=== PATIENT | female | born 1990 | race American Indian/Alaskan Native ===

== ENCOUNTER 2018-03-22 08:04 | Emergency (ER) | payer OTHER ==
--- NOTE | 2018-03-22 09:50 | Emergency Department Report ---
Blank Doc - Documentation Documentation: Patient is a 27-year-old black female who is partially 10 weeks by dates who is here for lower abdominal cramping and vaginal bleeding. Patient has small clots coming out. Patient called her FIRE INVESTIGATION MANAGER last night was told to come to the emergency department if her bleeding did stop by the morning. Patient briefly physical exam is alert and oriented heart tones are within normal limits abdomen soft and nontender. Ultrasound be performed as well as a beta Quant. Patient does not know her blood type and Rh testing will be done as well.
[2018-03-22 10:11] LABS: Bacteria,Urine 1+ /HPF (Negative); Bilirubin,Urine NEG (Negative); Blood,Urine LG (Negative); Color,Urine Yellow (Yellow); Mucus,Urine FEW /HPF; Protein,Urine <15 mg/dL mg/dL (Negative); Urobilinogen,Urine < 2.0 mg/dL (<2.0)
--- NOTE | 2018-03-22 10:16 | Emergency Department Report ---
ED HPI - General Chief complaint: Vaginal Bleeding Stated complaint: /VAGINAL BLEEDING Time Seen by Provider: 03/22/18 09:17 Source: patient Mode of arrival: Ambulatory Limitations: No Limitations - History of Present Illness Initial comments: This is a 27-year-old female nontoxic, well nourished in appearance, no acute signs of distress presents to the ED with c/o of vaginal bleeding x1 day. Patient stated yesterday she noticed some spotting this morning x3 occasions and primarily only when she wipes after the restroom. Patient denies any abdominal or pelvic pain. Patient denies any vaginal discharge or foul odor. Patient denies any nausea, vomiting, chest pain, shortness of breathe, fever, chills, headache, stiff neck, numbness, tingling. Patient denies any urinary symptoms. Patient denies any allergies and denies significant PMH. MD Complaint: vaginal bleeding -: Last night Location: pelvis Radiation: none Severity: mild Severity scale (0 -10): 3 Quality: cramping Consistency: intermittent Improves with: none Worsens with: none Associated symptoms: vaginal bleeding. denies: nausea/vomiting, vaginal discharge, abdominal pain, dysuria, headache, vision changes, malaise, dysparuenia, rash, seizure, shortness of breath, syncope, weakness Vaginal bleeding: light :: Yes Number of weeks : 10 OB History - Current : no complications OB History - Previous Pregnancies: no complications Pre-[facility] care: followed by OB - Related Data Previous Rx's Medication Instructions Recorded Last Taken Type Nitrofurantoin [place]/M-Cryst 100 mg PO Q12HR #14 capsule 03/22/18 Unknown Rx [Macrobid CAP] 21/Iron Fu/Folic Acid 1 each PO DAILY #30 tablet 03/22/18 Unknown Rx [ Complete Caplet] Allergies Allergy/AdvReac Type Severity Reaction Status Date / Time No Known Allergies Allergy Unverified 03/22/18 09:03 ED Review of Systems ROS: Stated complaint: /VAGINAL BLEEDING Other details as noted in HPI Constitutional: denies: chills, fever Eyes: denies: eye pain, eye discharge, vision change ENT: denies: ear pain, throat pain Respiratory: denies: cough, shortness of breath, wheezing Cardiovascular: denies: chest pain, palpitations Endocrine: no symptoms reported Gastrointestinal: denies: abdominal pain, nausea, vomiting, diarrhea Genitourinary: abnormal menses. denies: urgency, dysuria, discharge Musculoskeletal: denies: back pain, joint swelling, arthralgia Skin: denies: rash, lesions Neurological: denies: headache, weakness, paresthesias Psychiatric: denies: anxiety, depression Hematological/Lymphatic: denies: easy bleeding, easy bruising ED Past Medical Hx - Social History Smoking Status: Never Smoker - Medications Home Medications: Home Medications Medication Instructions Recorded Confirmed Last Taken Type Nitrofurantoin [place]/M-Cryst 100 mg PO Q12HR #14 capsule 03/22/18 Unknown Rx [Macrobid CAP] 21/Iron Fu/Folic Acid 1 each PO DAILY #30 tablet 03/22/18 Unknown Rx [ Complete Caplet] ED Physical Exam - General Limitations: No Limitations General appearance: alert, in no apparent distress - Head Head exam: Present: atraumatic, normocephalic - Eye Eye exam: Present: normal appearance Pupils: Present: normal accommodation - ENT ENT exam: Present: normal exam, mucous membranes moist - Neck Neck exam: Present: normal inspection, full ROM. Absent: tenderness, meningismus, lymphadenopathy - Respiratory Respiratory exam: Present: normal lung sounds bilaterally. Absent: respiratory distress, wheezes, rales, rhonchi, stridor, chest wall tenderness, accessory muscle use, decreased breath sounds, prolonged expiratory - Cardiovascular Cardiovascular Exam: Present: regular rate, normal rhythm, normal heart sounds. Absent: bradycardia, tachycardia, irregular rhythm, systolic murmur, diastolic murmur, rubs, gallop - GI/Abdominal GI/Abdominal exam: Present: soft, normal bowel sounds. Absent: distended, tenderness, guarding, rebound, rigid, diminished bowel sounds - Expanded GI/Abdominal Exam Expanded GI/Abdominal exam: Absent: psoas sign, obturator sign, heel tap sign, Ward's sign, Rovsing's sign, tenderness at [place]'s Point, ascites - Rectal Rectal exam: Present: deferred - Extremities Exam Extremities exam: Present: normal inspection, full ROM, normal capillary refill. Absent: tenderness - Back Exam Back exam: Present: normal inspection, full ROM. Absent: tenderness, CVA tenderness (R), CVA tenderness (L), muscle spasm, paraspinal tenderness, vertebral tenderness, rash noted - Neurological Exam Neurological exam: Present: alert, oriented X3, CN II-XII intact, normal gait - Psychiatric Psychiatric exam: Present: normal affect, normal mood - Skin Skin exam: Present: warm, dry, intact, normal color. Absent: rash ED Course Vital Signs 03/22/18 09:00 Temperature 98.3 F Pulse Rate 70 Respiratory 17 Rate Blood Pressure 126/70 O2 Sat by Pulse 100 Oximetry - Reevaluation(s) Reevaluation #1: 03/22/18 10:18 Patient is speaking in full sentences with no signs of distress noted. - Consultations Consultation #1: Patient has been consulted with Shruti Dunlap about patient history, physical exam, and labs/US and examined and screened patient and agrees to ED plan of care and discharge plan of care. Consultation #2: 03/22/18 13:47 Anjelica Easley office was consulted and answering services stated that Dr. Ortiz is production utility worker doctor and stated that they do not answer any calls from [facility] even though it is their patient. Requested for me to call the production utility worker VALVE MECHANIC. Shyann Cyr called and pending. Consultation #3: 03/22/18 13:53 Shyann Cyr was consulted about patient historym physical exam, and US report with labs and stated "it is not ectiopic and most likely missed AB". Discharge patient with VALVE MECHANIC follow-up tomorrow. ED Medical Decision Making - Lab Data Result diagrams: 03/22/18 10:15 - Medical Decision Making This is a 27-year-old female presents with threatened miscarriage and UTI. Patient is stable and was examined by me and Dr. Omalley. Normal abdominal exam. US OB obtained and dictated by the radiologist. Ua obtained. Quantative serum test obtained. Patient notified of the US report with no questions noted by the patient. Patient was instructed f/u with VALVE MECHANIC in 2 days to follow up with a VALVE MECHANIC or to emergency room for a reevaluation of serum quantative test with possible ultrasound. RH factor positive. Labs within normal limits. Patient discharged with Macrobid and vitamins. Patient was educated on symptoms of ectopic and to return to the ED if symptoms does occur. Patient was referred to Follow-up with a VALVE MECHANIC first thing in the morning or if symptoms worsen and continue return to emergency room as soon as possible. At time of discharge, the patient does not seem toxic or ill in appearance. No acute signs of distress noted. Patient agrees to discharge treatment plan of care. No further questions noted by the patient. Critical care attestation.: If time is entered above; I have spent that time in minutes in the direct care of this critically ill patient, excluding procedure time. ED Disposition Clinical Impression: Threatened miscarriage UTI (urinary tract infection) Qualifiers: Urinary tract infection type: site unspecified Hematuria presence: without hematuria Qualified Code(s): N39.0 - Urinary tract infection, site not specified Disposition: DC- TO HOME OR SELFCARE Is pt being admited?: No Does the pt Need Aspirin: No Condition: Stable Instructions: Threatened Miscarriage (ED), Urinary Tract Infection in Women (ED ) Additional Instructions: Follow-up with a primary care/VALVE MECHANIC doctor first thing in the morning tomorrow for a repeat HCG quantitative test/Ultrasound or if symptoms worsen and continue return to emergency room as soon as possible. Prescriptions: Nitrofurantoin [place]/M-Cryst [Macrobid CAP] 100 mg PO Q12HR #14 capsule 21/Iron Fu/Folic Acid [ Complete Caplet] 1 each PO DAILY #30 tablet Referrals: [facility] [Outside] - 3-5 Days PRIMARY MD MARLENI [Referring] - 3-5 Days YASMINE ALBERT MD [Staff Physician] - 3-5 Days ANJELICA WEINBERG MD [Primary Care Provider] - 24 Hours Forms: Work/School Release Form(ED)
[2018-03-22 10:34] LABS: Basophils % (Auto) 0.4 % (0.0-1.8); Eosinophils # (Auto) 0.1 K/mm3 (0.0-0.4); Eosinophils % (Auto) 0.9 % (0.0-4.3); Hematocrit 35.4 % (30.3-42.9); Hemoglobin 11.6 gm/dl (10.1-14.3); Lymphocytes # (Auto) 1.7 K/mm3 (1.2-5.4); Lymphocytes % (Auto) 26.7 % (13.4-35.0); Mean Corpuscular HGB Conc 33 % (30-34); Mean Corpuscular Hemoglobin 27 pg (28-32); Mean Corpuscular Volume 83 fl (79-97); Monocytes # (Auto) 0.5 K/mm3 (0.0-0.8); Monocytes % (Auto) 7.8 % (0.0-7.3); Platelet Count 283 K/mm3 (140-440); Red Blood Count 4.27 M/mm3 (3.65-5.03); Red Cell Distribution Width 15.3 % (13.2-15.2)
--- NOTE | 2018-03-22 13:20 | Ultrasound Report ---
FINAL REPORT EXAM: US OB < = 14 WEEKS FETUS HISTORY: preg with vag bleeding TECHNIQUE: Transabdominal and transvaginal sonography of the pelvis. PRIORS: None. FINDINGS: The uterus contains a small fluid collection, with mean sac diameter of 31 mm. Questionable yolk sac, but no pole identified ( pole should be identified at transvaginal examination when gestational mean sac diameter is 16 mm or greater). The right ovary measures 2.2 x 1.0 x 3.1 cm and is grossly unremarkable. The left ovary measures 2.7 x 1.6 x 2.7 cm and contains probable follicle or functional cyst measuring 1.6 cm. No adnexal masses, ring-like structures or significant free peritoneal fluid. IMPRESSION: 1. Nonspecific, intrauterine fluid collection. Possibilities include anembryonic gestation, early failure, or ectopic . Correlation with serial beta-hCG levels and follow-up ultrasound may help in further evaluation.
--- NOTE | 2018-03-22 13:21 | Ultrasound Report ---
FINAL REPORT EXAM: US OB TRANSVAGINAL HISTORY: preg with vag bleeding TECHNIQUE: Transabdominal and transvaginal sonography of the pelvis. PRIORS: None. FINDINGS: The uterus contains a small fluid collection, with mean sac diameter of 31 mm. Questionable yolk sac, but no pole identified ( pole should be identified at transvaginal examination when gestational mean sac diameter is 16 mm or greater). The right ovary measures 2.2 x 1.0 x 3.1 cm and is grossly unremarkable. The left ovary measures 2.7 x 1.6 x 2.7 cm and contains probable follicle or functional cyst measuring 1.6 cm. No adnexal masses, ring-like structures or significant free peritoneal fluid. IMPRESSION: 1. Nonspecific, intrauterine fluid collection. Possibilities include early anembryonic gestation early failure, or ectopic . Correlation with serial beta-hCG levels and follow-up ultrasound may help in further evaluation.
[2018-03-22 14:04] VITALS: BP 122/70
== END 2018-03-22 14:03 | disposition home or self-care (01) ==
LOC: ED 08:04
DX: O20.0 Threatened abortion (principal); O23.41 Unspecified infection of urinary tract in pregnancy, first trimester; Z3A.10 10 weeks gestation of pregnancy
CPT/HCPCS: 36415; 76801; 76817; 81001; 84702; 85025; 86900; 86901; 99284

== ENCOUNTER 2021-11-11 06:55 | Emergency (ER) | payer OTHER ==
[2021-11-11 07:04] VITALS: BP 101/68
--- NOTE | 2021-11-11 07:51 | Emergency Department Report ---
- General Chief complaint: Skin Rash Stated complaint: CELLULITIS ON CHEST Time Seen by Provider: 11/11/21 07:10 Source: patient Mode of arrival: Ambulatory Limitations: No Limitations - History of Present Illness Initial comments: This is a 31 -year-old female nontoxic, well nourished in appearance, no acute signs of distress presents to the ED with c/o of acute on chronic intermittent redness and pain to chest area x14 years. Stated it started again a few days ago. Patient stated was just seem by her PCP Dr. Aponte and was prescirbed topical cream and antibiotics PO which she has not yet started to take. Patient denies any pus or drainage. Patient denies any fever, chills, nausea, vomiting, chest pain, shortness of breath, headache or stiff neck. Patient denies any a llergies or significant past medical history. -: year(s) Location: chest Severity: mild Severity scale (0 -10): 3 Quality: aching Consistency: constant Improves with: none Worsens with: palpation Context: none Associated symptoms: denies other symptoms Treatments Prior to Arrival: none - Related Data Previous Rx's Medication Instructions Recorded Last Taken Type Nitrofurantoin [place]/M-Cryst 100 mg PO Q12HR #14 capsule 03/22/18 Unknown Rx [Macrobid CAP] 21/Iron Fu/Folic Acid 1 each PO DAILY #30 tablet 03/22/18 Unknown Rx [ Complete Caplet] Allergies Allergy/AdvReac Type Severity Reaction Status Date / Time No Known Allergies Allergy Unverified 03/22/18 09:03 Abscess Boil HPI - HPI Chief Complaint: Skin Rash Stated Complaint: CELLULITIS ON CHEST Time Seen by Provider: 11/11/21 07:10 Home Medications: Previous Rx's Medication Instructions Recorded Last Taken Type Nitrofurantoin [place]/M-Cryst 100 mg PO Q12HR #14 capsule 03/22/18 Unknown Rx [Macrobid CAP] 21/[place]/Folic Acid 1 each PO DAILY #30 tablet 03/22/18 Unknown Rx [ Complete Caplet] Allergies/Adverse Reactions: Allergies Allergy/AdvReac Type Severity Reaction Status Date / Time No Known Allergies Allergy Unverified 03/22/18 09:03 ED Review of Systems ROS: Stated complaint: CELLULITIS ON CHEST Other details as noted in HPI Comment: All other systems reviewed and negative Constitutional: denies: chills, fever Eyes: denies: eye pain, eye discharge, vision change ENT: denies: ear pain, throat pain Respiratory: denies: cough, shortness of breath, wheezing Cardiovascular: denies: chest pain, palpitations Endocrine: no symptoms reported Gastrointestinal: denies: abdominal pain, nausea, diarrhea Genitourinary: denies: urgency, dysuria, discharge Musculoskeletal: denies: back pain, joint swelling, arthralgia Skin: denies: rash, lesions Neurological: denies: headache, weakness, paresthesias Psychiatric: denies: anxiety, depression Hematological/Lymphatic: denies: easy bleeding, easy bruising ED Past Medical Hx - Past Medical History Previous Medical History?: Yes - Surgical History Past Surgical History?: Yes - Social History Smoking Status: Current Every Day Smoker - Medications Home Medications: Home Medications Medication Instructions Recorded Confirmed Last Taken Type Nitrofurantoin [place]/M-Cryst 100 mg PO Q12HR #14 capsule 03/22/18 Unknown Rx [Macrobid CAP] 21/[place]/Folic Acid 1 each PO DAILY #30 tablet 03/22/18 Unknown Rx [ Complete Caplet] ED Physical Exam - General Limitations: No Limitations General appearance: alert, in no apparent distress - Head Head exam: Present: atraumatic, normocephalic - Eye Eye exam: Present: normal appearance - Respiratory Respiratory exam: Present: other (3 cm x 4 cm cellulitis to mid chest area with no induration or flutance. no swelling. no abscess). Absent: respiratory distress - Cardiovascular Cardiovascular Exam: Present: regular rate - GI/Abdominal GI/Abdominal exam: Present: soft - Extremities Exam Extremities exam: Present: full ROM - Back Exam Back exam: Present: full ROM - Neurological Exam Neurological exam: Present: alert, oriented X3, normal gait - Psychiatric Psychiatric exam: Present: normal affect, normal mood - Skin Skin exam: Present: warm, dry, intact, normal color. Absent: rash - Expanded Skin Exam Expanded 1 - cellulitis present here ED Course Vital Signs 11/11/21 07:01 Temperature 98.5 F Pulse Rate 73 Respiratory 18 Rate Blood Pressure 101/68 O2 Sat by Pulse 100 Oximetry - Reevaluation(s) Reevaluation #1: 11/11/21 08:12 Patient is speaking in full sentences with no signs of distress noted. - Consultations Consultation #1: 11/11/21 08:15 Dr. Aponte has been paid with no answer back from the answering services. Briseida simeon provided me with the phone numbner and I spoke with the answering services to have Dr. Aponte paged but did not hear back. Consultation #2: 11/11/21 08:[address] Apnote and stated patient was prescribed Clinda and to start taking medicatoins and follow-up tomorrow in her office. ED Medical Decision Making - Medical Decision Making Patient presents with cellulitis. Patient is stable and was examined by me. Vital signs are stable at discharge. Exam does not consist of an abscess formation. Patient stated she does have antibiotics that was prescribed from her PCP yesterday which she stated the [facility] pharmacy opens today at [address] Aponte, patient instructed to start taking Clinda and f/u tomorrow. At this time patient stated she has a follow-up appointment with Dr. Aponte tomorrow at 6 PM. She was instructed to take antibiotics that was prescribed by her PCP and if further symptoms get worse to return to emergency room as was possible. At time of discharge, the patient does not seem toxic or ill in appearance. No acute signs of distress noted. Patient agrees to discharge treatment plan of care. No further questions noted by the patient. Critical care attestation.: If time is entered above; I have spent that time in minutes in the direct care of this critically ill patient, excluding procedure time. ED Disposition Clinical Impression: Cellulitis Qualifiers: Site of cellulitis: unspecified site Qualified Code(s): L03.90 - Cellulitis, unspecified Disposition: 01 HOME / SELF CARE / HOMELESS Is pt being admited?: No Does the pt Need Aspirin: No Condition: Stable Instructions: Cellulitis, Adult, [id number] Additional Instructions: Follow-up with a primary care doctor or if symptoms worsen and continue return to emergency room as soon as possible. Take antibiotics that was prescribed to you by your primary care doctor. Referrals: PRIMARY CARE,MD [Primary Care Provider] - Time of Disposition: 08:17
== END 2021-11-11 08:43 | disposition left against medical advice (07) ==
LOC: ED 06:55
DX: L03.90 Cellulitis, unspecified (principal); F17.200 Nicotine dependence, unspecified, uncomplicated
CPT/HCPCS: 99281

== ENCOUNTER 2022-05-26 16:22 | Emergency (ER) | payer OTHER ==
[2022-05-26] MEDS ORDERED: SODIUM CHLORIDE 0.9% 1000 ML 1,000 ML IV ONE (19:45)
[2022-05-26] MEDS ORDERED: ONDANSETRON 4 MG/2 ML INJ IV ONE (19:46)
--- NOTE | 2022-05-26 19:50 | Emergency Department Report ---
<LINN FARRELL - Last Filed: 05/26/22 20:57> ED General Adult HPI - General Chief complaint: Dental/Oral Stated complaint: LOW 02/CHEST PAIN/ Time Seen by Provider: 05/26/22 19:37 Source: patient Mode of arrival: Wheelchair Limitations: No Limitations - History of Present Illness Initial comments: 31 yo F who present with right dental pain with swelling for the last 3 days and progressively getting worse. She says she can taste something in her mouth but not sure. No fever or chills reported. She however reports that she was not able to tolerate fluid or food for the last 3 days due to been nauseous. Her LMP was mid of last month. No other modifying or associated factors reported. Severity scale (0 -10): 10 - Related Data Previous Rx's Medication Instructions Recorded Last Taken Type Nitrofurantoin [place]/M-Cryst 100 mg PO Q12HR #14 capsule 03/22/18 Unknown Rx [Macrobid CAP] 21/Iron Fu/Folic Acid 1 each PO DAILY #30 tablet 03/22/18 Unknown Rx [ Complete Caplet] Clindamycin [Clindamycin CAP] 300 mg PO Q8H 7 Days #21 cap 05/27/22 Unknown Rx Allergies Allergy/AdvReac Type Severity Reaction Status Date / Time No Known Allergies Allergy Verified 05/26/22 16:27 ED Review of Systems Comment: All other systems reviewed and negative Constitutional: chills. denies: fever ENT: dental pain ED Past Medical Hx - Past Medical History Previous Medical History?: Yes Additional medical history: LOW B/P - Surgical History Past Surgical History?: No - Social History Smoking Status: Current Every Day Smoker - Medications Home Medications: Home Medications Medication Instructions Recorded Confirmed Last Taken Type Nitrofurantoin [place]/M-Cryst 100 mg PO Q12HR #14 capsule 03/22/18 Unknown Rx [Macrobid CAP] 21/[place]/Folic Acid 1 each PO DAILY #30 tablet 03/22/18 Unknown Rx [ Complete Caplet] Clindamycin [Clindamycin CAP] 300 mg PO Q8H 7 Days #21 cap 05/27/22 Unknown Rx ED Physical Exam - General Limitations: No Limitations General appearance: alert, in no apparent distress - Head Head exam: Present: normal inspection - Eye Eye exam: Present: normal appearance Pupils: Present: normal accommodation - ENT ENT exam: Present: other (tenderness to the maxillary area on the right jaw with gingiva erythema with swelling but no exudate) - Neck Neck exam: Present: normal inspection, tenderness, full ROM. Absent: lymphadenopathy - Respiratory Respiratory exam: Present: normal lung sounds bilaterally. Absent: respiratory distress, accessory muscle use - Cardiovascular Cardiovascular Exam: Present: regular rate, normal rhythm, normal heart sounds - GI/Abdominal GI/Abdominal exam: Present: soft, normal bowel sounds. Absent: distended, tenderness - Extremities Exam Extremities exam: Present: normal inspection, normal capillary refill. Absent: tenderness, pedal edema - Back Exam Back exam: Absent: tenderness, CVA tenderness (R), CVA tenderness (L) - Neurological Exam Neurological exam: Present: alert, oriented X3 - Psychiatric Psychiatric exam: Present: normal affect, normal mood - Skin Skin exam: Present: warm ED Course - Reevaluation(s) Reevaluation #1: 05/26/22 20:57 pt signed out to Dr Coronado while waiting for patient response to treatment and rou josé miguel labs ED Medical Decision Making - Medical Decision Making Here with right dental pain and noted with tenderness to the maxillary area on the right jaw with gingiva erythema with swelling but no exudate--consistent with gingivitis and dental caries--with this patient nausea and vomiting coupled with anorexia the last 3 days we will go ahead and order IV fluid NS 1 L x 1 and Zofran 4 mg IV x1 for symptomatic relief while waiting for routine labs CBC, CMP, urinalysis for any infectious or electrolyte abnormality. Also given Toradol 30 mg IV x1 for pain. ED Disposition Clinical Impression: Gingivitis, Dental caries, Hypokalemia Nausea and vomiting Qualifiers: Vomiting type: unspecified Qualified Code(s): R11.2 - Nausea with vomiting, unspecified Disposition: HOME / SELF CARE / HOMELESS Does the pt Need Aspirin: No Condition: Stable Instructions: Nausea and Vomiting, Adult, [id number] Additional Instructions: MAKE A FOLLOW UP APPOINTMENT WITH DENTIST OF YOUR CHOICE TO BE SEEN WITHIN 3 DAYS FOR FURTHER OUTPATIENT EVALUATION. Prescriptions: Clindamycin [Clindamycin CAP] 300 mg PO Q8H 7 Days #21 cap Referrals: NIRMAL AMANDA, BELINDA-C [Primary Care Provider] - 3-5 Days <CORONADO,CHUNYEN N. - Last Filed: 05/27/22 04:12> ED Review of Systems ROS: Stated complaint: LOW 02/CHEST PAIN/ Other details as noted in HPI ED Course Vital Signs 05/26/22 05/26/22 16:32 23:22 Temperature 998.8 F H Pulse Rate 93 H Respiratory 28 H Rate Blood Pressure 112/80 [Right] O2 Sat by Pulse 100 96 Oximetry - Reevaluation(s) Reevaluation #1: 05/27/22 00:59 LOW K; NORMAL MG; WILL GIVE PO/IV K AND RECHECK. ED Medical Decision Making - Lab Data Result diagrams: 05/26/22 20:38 05/27/22 03:20 Critical care attestation.: If time is entered above; I have spent that time in minutes in the direct care of this critically ill patient, excluding procedure time. ED Disposition Is pt being admited?: No Does the pt Need Aspirin: No Time of Disposition: 04:10
[2022-05-26 20:57] LABS: INR 1.03 (0.87-1.13)
[2022-05-26 20:58] LABS: Partial Thromboplastin Time 32.6 Sec. (24.2-36.6)
[2022-05-26] MEDS ORDERED: KETOROLAC 30 MG/1 ML INJ IV ONE (21:00)
[2022-05-26 21:04] LABS: Alanine Aminotransferase 33 units/L (7-56); Blood Urea Nitrogen 5 mg/dL (7-17); Calcium 7.9 mg/dL (8.4-10.2); Hemolysis Index 10
[2022-05-26 21:05] LABS: BUN/Creatinine Ratio 8
[2022-05-26 21:11] LABS: Hematocrit 34.5 % (30.3-42.9); Hemoglobin 11.5 gm/dl (10.1-14.3); Lymphocytes % (Auto) 43.7 % (13.4-35.0); Mean Corpuscular HGB Conc 33 % (30-34); Mean Corpuscular Volume 77 fl (79-97); Platelet Count 79 K/mm3 (140-440); Red Cell Distribution Width 15.3 % (13.2-15.2)
[2022-05-26 21:12] LABS: Basophils % (Auto) 0.4 % (0.0-1.8); Eosinophils % (Auto) 0.2 % (0.0-4.3); Lymphocytes # (Auto) 2.1 K/mm3 (1.2-5.4); Monocytes # (Auto) 0.2 K/mm3 (0.0-0.8); Monocytes % (Auto) 3.8 % (0.0-7.3)
[2022-05-26 21:48] LABS: Free T4 (Free Thyroxine) 1.29 ng/dL (0.76-1.46)
[2022-05-27] MEDS ORDERED: POTASSIUM CHLORIDE ER 20 MEQ TAB PO ONE (00:36)
[2022-05-27] MEDS ORDERED: SODIUM CHLORIDE 0.9% 1000 ML 1,000 ML ONE (01:01)
[2022-05-27] MEDS: POTASSIUM CHLORIDE 10 MEQ 10 MEQ/100 ML BAG IV SCH ×3 (01:14→03:20)
[2022-05-27 04:23] VITALS: BP 100/67
== END 2022-05-27 04:40 | disposition home or self-care (01) ==
LOC: ED 16:22
DX: K05.10 Chronic gingivitis, plaque induced (principal); K02.9 Dental caries, unspecified; R11.2 Nausea with vomiting, unspecified; F17.200 Nicotine dependence, unspecified, uncomplicated
CPT/HCPCS: 36415; 80053; 83690; 83735; 84132; 84439; 84443; 85025; 85610; 85730; 96365; 96366; 96367; 96375; 99283; J1885; J2405; J3480; J7030; J7502; 96361